=== PATIENT | male | born 1950 | race Caucasian/White ===

== ENCOUNTER 2019-04-20 13:12 | Emergency (ER) | payer MEDICARE ==
[~2019-04-20] VITALS: Ht 188 cm; Wt 81.6 kg
[2019-04-20] MEDS ORDERED: LIDOCAINE HCL 1% 20 ML VIAL TP ONE (13:45)
--- NOTE | 2019-04-20 13:59 | NUR ---
Patient discharged to home in stable conditon. Written and verbal after care instructions given to patient. Patient verbalizes understanding of instructions.
== END 2019-04-20 14:03 | disposition home or self-care (01) ==
LOC: ER 13:12
DX: L02.212 Cutaneous abscess of back [any part, except buttock and flank] (principal); Z88.0 Allergy status to penicillin
CPT/HCPCS: 10060; 99283; J3490; A4217; A4663

== ENCOUNTER 2019-04-22 10:46 | Emergency (ER) | payer MEDICARE ==
[~2019-04-22] VITALS: Ht 188 cm; Wt 81.6 kg
--- NOTE | 2019-04-22 11:15 | NUR ---
Patient left without paperwork as he stated that he didn't need it.
[2019-04-22 11:24] VITALS: BP 135/80
== END 2019-04-22 11:15 | disposition home or self-care (01) ==
LOC: ER 10:46
DX: Z48.01 Encounter for change or removal of surgical wound dressing (principal); Z88.0 Allergy status to penicillin
CPT/HCPCS: A4663